=== PATIENT | male | born 1975 | race Caucasian/White ===

== ENCOUNTER 2017-08-27 23:40 | Inpatient (IN) | payer MEDICAID ==
[~2017-08-27] VITALS: Ht 167.6 cm; Wt 77.2 kg
[2017-08-28] VITALS (7 sets, daily range): BP systolic 116–142; BP diastolic 72–88
[2017-08-28 00:23] LABS: BASOPHILS % (AUTO) 0.7 % (0.0-2.0); EOSINOPHILS % (AUTO) 0.6 % (1.0-6.0); HEMATOCRIT 47.3 % (41-53); HEMOGLOBIN 16.6 g/dL (13.5-17.5); LYMPHOCYTES # (AUTO) 0.8 K/uL (1.0-4.8); MEAN CORPUSCULAR HEMOGLOBIN 32.1 pg (26.0-34.0); MEAN CORPUSCULAR VOLUME 92 fL (80-100); MONOCYTES # (AUTO) 0.3 K/uL (0.1-1.0); MONOCYTES % (AUTO) 6.7 % (2.0-9.0); NEUTROPHILS # (AUTO) 3.4 K/uL (1.8-7.7); PLATELET COUNT (AUTO) 231 K/uL (150-450); RED BLOOD CELL COUNT(AUTO) 5.15 MIL/uL (4.50-5.90); RED CELL DISTRIBUTION WIDTH 13.2 % (11.5-14.5); WHITE BLOOD COUNT (AUTO) 4.6 K/uL (4.5-11.0)
[2017-08-28 00:26] LABS: ANION GAP 11 mmol/L (8-16); CALCIUM, TOTAL 8.4 mg/dL (8.8-10.5); CARBON DIOXIDE 28 mmol/L (22-29); CHLORIDE 98 mmol/L (98-107); CREATININE 1.05 mg/dL (0.60-1.30); GLOMERULAR FILTR. RATE CALC > 60 mL/min (>60); POTASSIUM 3.7 mmol/L (3.5-5.1); SODIUM SERUM 137 mmol/L (136-145); UREA NITROGEN, BLOOD 8 mg/dL (7-18)
[2017-08-28 00:31] LABS: ALANINE AMINOTRANSFERASE 166 U/L (12-78); ASPARTATE AMINOTRANSFERASE 135 U/L (15-37); BILIRUBIN,TOTAL 0.3 mg/dL (0.1-1.0); TOTAL PROTEIN, SERUM 7.7 g/dL (6.4-8.2)
[2017-08-28] MEDS ORDERED: GuaiFENesin/D-METHORPHAN [SUGAR-FREE] 200-20MG/10 ML SYRUP UDCUP PO PRN (03:15)
[2017-08-28] MEDS ORDERED: HydrOXYzine PAMOATE 50 MG CAPSULE PO PRN (03:15)
[2017-08-28] MEDS ORDERED: CYANOCOBALAMIN 1,000 MCG/ML VIAL IM ONE (03:15)
[2017-08-28] MEDS ORDERED: LORazepam 2 MG TABLET PO PRN (03:15)
[2017-08-28] MEDS ORDERED: ONDANSETRON HCL 4 MG TABLET PO ONE (03:15)
[2017-08-28] MEDS ORDERED: LOPERAMIDE HCL 2 MG CAPSULE PO PRN (03:15)
[2017-08-28] MEDS ORDERED: LORazepam 2 MG TABLET PO ONE (03:15)
[2017-08-28] MEDS ORDERED: PHENYTOIN SODIUM 1,000 MG in SODIUM CHLORIDE 0.9% 150 ML IV ONE (03:45)
[2017-08-28 04:04] LABS: GLUCOSE, URINE (UA) NEGATIVE (NEGATIVE); KETONES,URINE NEGATIVE (NEGATIVE); LEUKOCYTE ESTERASE ,URINE NEGATIVE (NEGATIVE); OCCULT BLOOD,URINE NEGATIVE (NEGATIVE); PROTEIN,URINE NEGATIVE (NEGATIVE)
[2017-08-28 04:06] LABS: ADD UA MICROSCOPIC NO; APPEARANCE,URINE HAZY (CLEAR)
[2017-08-28] MEDS: THIAMINE HCL 100 MG TABLET PO SCH ×2 (08:13→17:50)
[2017-08-28] MEDS: FOLIC ACID 1 MG TABLET PO SCH (08:13)
[2017-08-28] MEDS: MULTIVITAMINS WITH MINERALS, THERAPEUTIC TABLET PO SCH (08:13)
[2017-08-28] MEDS ORDERED: INFLUENZA VIRUS VACCINE QVS 2017-18 (3YR+)/PF 60 MCG/0.5 ML SYRINGE IM ONE (10:30)
[2017-08-28] MEDS: ZOLPIDEM TARTRATE 10 MG TABLET PO PRN (23:48)
[2017-08-29 00:03] VITALS: BP 130/90
[2017-08-29 06:39] VITALS: BP 146/88
[2017-08-29] MEDS ORDERED: LORazepam 2 MG TABLET PO PRN (07:00)
[2017-08-29 07:59] LABS: CHOL/HDL RATIO 1.4 (4.2-7.3); THYROID STIMULATING HORMONE 5.22 uIU/mL (0.36-3.74)
[2017-08-29 08:30] VITALS: BP 138/79
[2017-08-29] MEDS: FOLIC ACID 1 MG TABLET PO SCH (08:39)
[2017-08-29] MEDS: LORazepam 2 MG TABLET PO SCH ×4 (08:39→20:15)
[2017-08-29] MEDS: MULTIVITAMINS WITH MINERALS, THERAPEUTIC TABLET PO SCH (08:39)
[2017-08-29] MEDS: THIAMINE HCL 100 MG TABLET PO SCH ×2 (08:39→16:22)
[2017-08-29] MEDS: SERTRALINE HCL 50 MG TABLET PO SCH (12:13)
[2017-08-29 12:59] VITALS: BP 128/68
[2017-08-29 16:15] VITALS: BP 142/87
[2017-08-30 07:23] VITALS: BP 138/98
[2017-08-30 08:30] VITALS: BP 144/85
[2017-08-30] MEDS: SERTRALINE HCL 50 MG TABLET PO SCH (09:04)
[2017-08-30] MEDS: LORazepam 2 MG TABLET PO SCH ×3 (09:04→17:01)
[2017-08-30] MEDS: THIAMINE HCL 100 MG TABLET PO SCH ×2 (09:04→17:01)
[2017-08-30] MEDS: MULTIVITAMINS WITH MINERALS, THERAPEUTIC TABLET PO SCH (09:04)
[2017-08-30] MEDS: FOLIC ACID 1 MG TABLET PO SCH (09:04)
[2017-08-30 09:35] VITALS: BP 144/85
[2017-08-30 16:30] VITALS: BP 136/87
[2017-08-31 01:09] VITALS: BP 137/82
[2017-08-31] MEDS ORDERED: LORazepam 1 MG TABLET PO PRN (07:00)
[2017-08-31 08:00] VITALS: BP 137/94
[2017-08-31] MEDS: FOLIC ACID 1 MG TABLET PO SCH (08:14)
[2017-08-31] MEDS: SERTRALINE HCL 50 MG TABLET PO SCH (08:14)
[2017-08-31] MEDS: THIAMINE HCL 100 MG TABLET PO SCH ×2 (08:14→16:33)
[2017-08-31] MEDS: MULTIVITAMINS WITH MINERALS, THERAPEUTIC TABLET PO SCH (08:14)
[2017-08-31] MEDS: LORazepam 1 MG TABLET PO SCH ×4 (08:14→20:06)
[2017-08-31 09:08] VITALS: BP 137/94
[2017-08-31 16:16] VITALS: BP 123/75
[2017-08-31 16:19] VITALS: BP 123/75
[2017-09-01 03:20] VITALS: BP 136/93
[2017-09-01] MEDS: HALOPERIDOL 5 MG TABLET PO PRN (03:28)
[2017-09-01] MEDS: THIAMINE HCL 100 MG TABLET PO SCH ×2 (08:27→16:30)
[2017-09-01] MEDS: SERTRALINE HCL 50 MG TABLET PO SCH (08:27)
[2017-09-01] MEDS: FOLIC ACID 1 MG TABLET PO SCH (08:27)
[2017-09-01] MEDS: MULTIVITAMINS WITH MINERALS, THERAPEUTIC TABLET PO SCH (08:27)
[2017-09-01] MEDS: LORazepam 1 MG TABLET PO PRN (08:28)
[2017-09-01 09:29] VITALS: BP 127/79
[2017-09-01 09:30] VITALS: BP 127/79
[2017-09-01 16:20] VITALS: BP 128/80
[2017-09-02] MEDS: ZOLPIDEM TARTRATE 10 MG TABLET PO PRN (01:30)
[2017-09-02 02:39] VITALS: BP 135/75
[2017-09-02 02:43] VITALS: BP 135/76
[2017-09-02] MEDS: LORazepam 1 MG TABLET PO PRN (05:28)
[2017-09-02 09:06] VITALS: BP 129/81
[2017-09-02] MEDS: SERTRALINE HCL 50 MG TABLET PO SCH (09:20)
[2017-09-02] MEDS: MULTIVITAMINS WITH MINERALS, THERAPEUTIC TABLET PO SCH (09:20)
[2017-09-02] MEDS: FOLIC ACID 1 MG TABLET PO SCH (09:20)
[2017-09-02] MEDS: THIAMINE HCL 100 MG TABLET PO SCH (09:20)
[2017-09-02] MEDS: HALOPERIDOL 5 MG TABLET PO PRN (12:31)
[2017-09-02] MEDS ORDERED: SERT50TA12 PO (13:46)
== END 2017-09-02 14:40 | disposition home or self-care (01) | DRG 751 ==
LOC: EMS 23:43 → AHU 08-28 08:57 → 3EI 08-28 16:16
PROVIDERS: ADMIT Psychiatry & Neurology Psychiatry; ATTEND Psychiatry & Neurology Child & Adolescent Psychiatry
DX: F33.2 Major depressive disorder, recurrent severe without psychotic features (principal); R45.851 Suicidal ideations; K70.30 Alcoholic cirrhosis of liver without ascites; K70.10 Alcoholic hepatitis without ascites; F10.229 Alcohol dependence with intoxication, unspecified; Z79.899 Other long term (current) drug therapy; Z28.21 Immunization not carried out because of patient refusal
CPT/HCPCS: 84443; 96365; 96372; 99285; G0480; J1165; J3420; J7050; Q0162

== ENCOUNTER 2017-12-27 19:18 | Inpatient (IN) | payer SELFPAY ==
[~2017-12-27] VITALS: Ht 167.6 cm; Wt 67.0 kg
[~2017-12-27 19:18] MED LIST: SERT50TA12 PO
[2017-12-27] MEDS ORDERED: SODIUM CHLORIDE 0.9% 1,000 ML IV ONE (21:30)
[2017-12-27 21:48] LABS: AMPHET/METH SCREEN,URINE NEGATIVE (NEGATIVE); BARBITURATE SCREEN, URINE NEGATIVE (NEGATIVE); BENZODIAZEPINES SCREEN,URINE NEGATIVE (NEGATIVE); CANNABINOID SCREEN,URINE NEGATIVE (NEGATIVE); COCAINE SCREEN,URINE NEGATIVE (NEGATIVE); METHADONE SCREEN, URINE NEGATIVE (NEGATIVE); OPIATE SCREEN,URINE NEGATIVE (NEGATIVE)
[2017-12-27 21:48] LABS: BASOPHILS % (AUTO) 0.4 % (0.0-2.0); EOSINOPHILS % (AUTO) 0.2 % (1.0-6.0); HEMATOCRIT 46.1 % (41-53); HEMOGLOBIN 15.9 g/dL (13.5-17.5); LYMPHOCYTES # (AUTO) 1.4 K/uL (1.0-4.8); MEAN CORPUSCULAR HEMOGLOBIN 31.8 pg (26.0-34.0); MEAN CORPUSCULAR HGB CONC 34.6 G/dL (31.0-37.0); MEAN CORPUSCULAR VOLUME 92 fL (80-100); MONOCYTES # (AUTO) 0.3 K/uL (0.1-1.0); NEUTROPHILS # (AUTO) 3.8 K/uL (1.8-7.7); NEUTROPHILS % (AUTO) 69.4 % (40.0-70.0); PLATELET COUNT (AUTO) 202 K/uL (150-450); RED BLOOD CELL COUNT(AUTO) 5.02 MIL/uL (4.50-5.90); RED CELL DISTRIBUTION WIDTH 12.4 % (11.5-14.5)
[2017-12-27 21:49] LABS: PHENCYCLIDINE SCREEN,URINE NEGATIVE (NEGATIVE)
[2017-12-27 21:56] LABS: ANION GAP 14 mmol/L (8-16); CALCIUM, TOTAL 8.5 mg/dL (8.8-10.5); CARBON DIOXIDE 27 mmol/L (22-29); CHLORIDE 101 mmol/L (98-107); CREATININE 0.66 mg/dL (0.60-1.30); GLOMERULAR FILTR. RATE CALC > 60 mL/min (>60); GLUCOSE,RANDOM 112 mg/dL (70-110); SODIUM SERUM 142 mmol/L (136-145); UREA NITROGEN, BLOOD 5 mg/dL (7-18)
[2017-12-27 22:10] LABS: ALANINE AMINOTRANSFERASE 56 U/L (12-78); ALBUMIN 4.1 g/dL (3.4-5.0); ALKALINE PHOSPHATASE 77 U/L (46-116); ASPARTATE AMINOTRANSFERASE 45 U/L (15-37); BILIRUBIN,TOTAL 0.4 mg/dL (0.1-1.0); TOTAL PROTEIN, SERUM 7.9 g/dL (6.4-8.2)
[2017-12-28] MEDS ORDERED: HydrOXYzine PAMOATE 25 MG CAPSULE PO ONE (01:00)
[2017-12-28] MEDS ORDERED: HALOPERIDOL LACTATE 5 MG/ML VIAL IM ONE (01:00)
[2017-12-28] MEDS: ZOLPIDEM TARTRATE 10 MG TABLET PO PRN (02:19)
[2017-12-28 03:25] LABS: APPEARANCE,URINE CLEAR (CLEAR); BILIRUBIN,URINE NEGATIVE (NEGATIVE); GLUCOSE, URINE (UA) NEGATIVE (NEGATIVE); KETONES,URINE NEGATIVE (NEGATIVE); LEUKOCYTE ESTERASE ,URINE NEGATIVE (NEGATIVE); NITRATE,URINE NEGATIVE (NEGATIVE); OCCULT BLOOD,URINE TRACE (NEGATIVE); PH,URINE 6.5 (5.0-8.0); PROTEIN,URINE NEGATIVE (NEGATIVE); UROBILINOGEN,URINE 0.2 mg/dL (<=1.0)
[2017-12-28 03:44] LABS: BACTERIA,URINE None Seen /HPF (None Seen); RBC,URINE 0-2 /HPF (0-2); WBC,URINE None Seen /HPF (0-5)
[2017-12-28 03:45] LABS: SQUAMOUS EPITHELIAL CELL,UR Rare /LPF (None Seen)
[2017-12-28 04:00] VITALS: BP 141/90
[2017-12-28 05:01] VITALS: BP 140/83
[2017-12-28] MEDS: LORazepam 2 MG TABLET PO PRN ×3 (05:32→19:26)
[2017-12-28] MEDS: HALOPERIDOL 5 MG TABLET PO PRN ×3 (05:32→19:26)
[2017-12-28 06:06] VITALS: BP 147/84
[2017-12-28 07:08] VITALS: BP 124/78
[2017-12-28 08:31] VITALS: BP 154/89
[2017-12-28] MEDS ORDERED: CloNIDine HCL 0.1 MG TABLET PO PRN (11:45)
[2017-12-28 19:19] VITALS: BP 143/90
[2017-12-29] MEDS: LORazepam 2 MG TABLET PO PRN ×2 (01:56→13:59)
[2017-12-29 01:57] VITALS: BP 163/96
[2017-12-29] MEDS: ZOLPIDEM TARTRATE 10 MG TABLET PO PRN (01:58)
[2017-12-29 07:22] LABS: CHOL/HDL RATIO 1.6 (4.2-7.3); FREE T4 (FREE THYROXINE) 0.72 ng/dL (0.76-1.46); MAGNESIUM 2.4 mg/dL (1.80-2.40); THYROID STIMULATING HORMONE 5.8 uIU/mL (0.36-3.74)
[2017-12-29 07:37] LABS: FOLATE SERUM 10.5 ng/mL (5.4-)
[2017-12-29 09:29] VITALS: BP 140/89
[2017-12-29] MEDS: SERTRALINE HCL 50 MG TABLET PO SCH (10:22)
[2017-12-29] MEDS: PANTOPRAZOLE SODIUM 40 MG DR TABLET PO SCH (10:22)
[2017-12-29] MEDS: HALOPERIDOL 5 MG TABLET PO PRN (13:59)
[2017-12-29 17:59] VITALS: BP 136/91
[2017-12-30 08:00] VITALS: BP 128/84
[2017-12-30] MEDS: PANTOPRAZOLE SODIUM 40 MG DR TABLET PO SCH (09:05)
[2017-12-30] MEDS: SERTRALINE HCL 50 MG TABLET PO SCH (09:05)
[2017-12-30] MEDS: HALOPERIDOL 5 MG TABLET PO PRN (13:19)
[2017-12-30] MEDS: LORazepam 2 MG TABLET PO PRN ×2 (13:19→21:06)
[2017-12-30 18:46] VITALS: BP 131/87
[2017-12-30] MEDS: ZOLPIDEM TARTRATE 10 MG TABLET PO PRN (21:06)
[2017-12-31] MEDS: PANTOPRAZOLE SODIUM 40 MG DR TABLET PO SCH (08:41)
[2017-12-31] MEDS: SERTRALINE HCL 50 MG TABLET PO SCH (08:41)
[2017-12-31] MEDS: LORazepam 2 MG TABLET PO PRN ×2 (08:41→17:50)
[2017-12-31 10:55] VITALS: BP 144/93
[2017-12-31] MEDS ORDERED: PANT40TA25 PO (16:20)
== END 2017-12-31 18:15 | disposition home or self-care (01) | DRG 881 ==
LOC: EMS 19:20 → 3EI 12-28 02:31
PROVIDERS: ADMIT Psychiatry & Neurology Psychiatry; ATTEND Psychiatry & Neurology Psychiatry
DX: F32.9 Major depressive disorder, single episode, unspecified (principal); K70.10 Alcoholic hepatitis without ascites; E03.9 Hypothyroidism, unspecified; F10.239 Alcohol dependence with withdrawal, unspecified; I10 Essential (primary) hypertension; Z79.899 Other long term (current) drug therapy
CPT/HCPCS: 80074; 82306; 82607; 82746; 83735; 84439; 84443; 96360; 99285; G0480; J1630; J7030

== ENCOUNTER 2018-05-08 23:27 | Emergency (ER) | payer SELFPAY ==
[~2018-05-08] VITALS: Ht 167.6 cm; Wt 59.1 kg
[~2018-05-08 23:27] MED LIST changes: +PANT40TA25 PO
[2018-05-09] MEDS ORDERED: LORazepam 2 MG TABLET PO ONE (01:30)
[2018-05-09 02:06] LABS: BASOPHILS % (AUTO) 0.4 % (0.0-2.0); EOSINOPHILS % (AUTO) 0.9 % (1.0-6.0); HEMATOCRIT 44.5 % (41-53); HEMOGLOBIN 15.4 g/dL (13.5-17.5); LYMPHOCYTES # (AUTO) 1.1 K/uL (1.0-4.8); LYMPHOCYTES % (AUTO) 15.4 % (22.0-44.0); MEAN CORPUSCULAR HEMOGLOBIN 32.8 pg (26.0-34.0); MEAN CORPUSCULAR HGB CONC 34.6 G/dL (31.0-37.0); MEAN CORPUSCULAR VOLUME 95 fL (80-100); MONOCYTES # (AUTO) 0.4 K/uL (0.1-1.0); MONOCYTES % (AUTO) 5.7 % (2.0-9.0); NEUTROPHILS # (AUTO) 5.6 K/uL (1.8-7.7); NEUTROPHILS % (AUTO) 77.6 % (40.0-70.0); PLATELET COUNT (AUTO) 272 K/uL (150-450); RED BLOOD CELL COUNT(AUTO) 4.69 MIL/uL (4.50-5.90); RED CELL DISTRIBUTION WIDTH 14.4 % (11.5-14.5)
[2018-05-09 02:13] LABS: ANION GAP 10 mmol/L (8-16); CALCIUM, TOTAL 8.4 mg/dL (8.8-10.5); CARBON DIOXIDE 31 mmol/L (22-29); CHLORIDE 100 mmol/L (98-107); CREATININE 0.75 mg/dL (0.60-1.30); GLOMERULAR FILTR. RATE CALC > 60 mL/min (>60); GLUCOSE,RANDOM 104 mg/dL (70-110); POTASSIUM 4.4 mmol/L (3.5-5.1); SODIUM SERUM 141 mmol/L (136-145); UREA NITROGEN, BLOOD 6 mg/dL (7-18)
[2018-05-09 02:15] LABS: AMPHET/METH SCREEN,URINE NEGATIVE (NEGATIVE); BARBITURATE SCREEN, URINE NEGATIVE (NEGATIVE); BENZODIAZEPINES SCREEN,URINE NEGATIVE (NEGATIVE); CANNABINOID SCREEN,URINE NEGATIVE (NEGATIVE); COCAINE SCREEN,URINE NEGATIVE (NEGATIVE); METHADONE SCREEN, URINE NEGATIVE (NEGATIVE); OPIATE SCREEN,URINE NEGATIVE (NEGATIVE); PHENCYCLIDINE SCREEN,URINE NEGATIVE (NEGATIVE)
[2018-05-09 02:19] LABS: ALANINE AMINOTRANSFERASE 75 U/L (12-78); ALBUMIN 3.8 g/dL (3.4-5.0); ALKALINE PHOSPHATASE 74 U/L (46-116); ASPARTATE AMINOTRANSFERASE 53 U/L (15-37); BILIRUBIN,TOTAL 0.5 mg/dL (0.1-1.0); TOTAL PROTEIN, SERUM 7.7 g/dL (6.4-8.2)
[2018-05-09 06:47] VITALS: BP 125/76
== END 2018-05-09 06:51 | disposition home or self-care (01) ==
LOC: EMS 23:28
DX: S20.212A Contusion of left front wall of thorax, initial encounter (principal); S90.32XA Contusion of left foot, initial encounter; K70.30 Alcoholic cirrhosis of liver without ascites; F10.129 Alcohol abuse with intoxication, unspecified; F32.9 Major depressive disorder, single episode, unspecified; F17.210 Nicotine dependence, cigarettes, uncomplicated; X83.8XXA Intentional self-harm by other specified means, initial encounter; Y93.89 Activity, other specified; Y92.89 Other specified places as the place of occurrence of the external cause; Y99.8 Other external cause status
CPT/HCPCS: 36415; 80053; 80307; 85025; 93005; 99285; 99406; G0480